=== PATIENT | male | born 1960 | race Two or more races ===

== ENCOUNTER 2022-10-08 22:36 | Emergency (ER) | payer OTHER ==
[~2022-10-08] VITALS: Ht 162.6 cm; Wt 75.7 kg
[~2022-10-08 22:36] MED LIST: ASPI-605 PO; BENA10TA74 PO; LORA-672 PO; LOVA20TA2 PO; METF-440 PO; NAPR-1192 PO; PHEN10VI NAS; SODI45SP6 NS; SULF1TAB44 PO
--- NOTE | 2022-10-08 22:50 | NUR ---
AT BEDSIDE FOR EVAL
[2022-10-08 23:12] VITALS: BP 142/96
== END 2022-10-08 23:12 | disposition home or self-care (01) ==
LOC: ER 22:42
DX: J30.9 Allergic rhinitis, unspecified (principal); R09.82 Postnasal drip; I10 Essential (primary) hypertension; I25.10 Atherosclerotic heart disease of native coronary artery without angina pectoris; E11.9 Type 2 diabetes mellitus without complications; E78.00 Pure hypercholesterolemia, unspecified; Z86.73 Personal history of transient ischemic attack (TIA), and cerebral infarction without residual deficits; Z60.2 Problems related to living alone; Z79.899 Other long term (current) drug therapy; Z79.82 Long term (current) use of aspirin